=== PATIENT | female | born 1985 | race Hispanic/Latino ===

== ENCOUNTER 2018-02-14 06:18 | Emergency (ER) | payer BC, OTHER ==
[~2018-02-14] VITALS: Ht 157.5 cm; Wt 54.0 kg
[~2018-02-14 06:18] MED LIST: FERROUS SULF325 M1 PO; FLUZONE SPLT1 M1 IM; IBUPROFEN600 MG PO; NO; OB COMPLET2 OR; OBTREX DHA PO; TUBERSOL5 MG/0.1 M ID
[2018-02-14] MEDS ORDERED: VISTARIL25 MG PO (07:41)
[2018-02-14 07:44] VITALS: BP 103/55
== END 2018-02-14 07:45 | disposition home or self-care (01) | DRG 833 ==
LOC: ED 06:18
DX: O26.892 Other specified pregnancy related conditions, second trimester (principal); L30.9 Dermatitis, unspecified; L29.9 Pruritus, unspecified; Z3A.16 16 weeks gestation of pregnancy

== ENCOUNTER → 2018-04-28 | Outpatient (REF) | payer OTHER ==
[~2018-04-28] MED LIST changes: +VISTARIL25 MG PO
== END | disposition home or self-care (01) ==
LOC: LAB 07:47
PROVIDERS: ATTEND Obstetrics & Gynecology
DX: R73.09 Other abnormal glucose (principal)

== ENCOUNTER → 2018-05-27 | Outpatient (REF) | payer OTHER ==
[2018-05-27 11:34] LABS: BILIRUBIN, TOTAL 0.3 mg/dL (0.0-1.4); TOTAL PROTEIN 6.5 g/dL (6.3-8.2)
== END | disposition home or self-care (01) ==
LOC: LAB 10:31
PROVIDERS: ATTEND Obstetrics & Gynecology Maternal & Fetal Medicine
DX: O26.613 Liver and biliary tract disorders in pregnancy, third trimester (principal); K83.1 Obstruction of bile duct

== ENCOUNTER 2022-09-18 18:01 | Emergency (ER) | payer BC ==
[~2022-09-18] VITALS: Ht 162.6 cm; Wt 48.0 kg
[2022-09-18 18:09] VITALS: BP 115/74
[2022-09-18 18:30] VITALS: BP 122/85
[2022-09-18 18:37] LABS: EOS% 2.3 % (0-8); HEMATOCRIT 38.7 % (37.0-47.0); HEMOGLOBIN 12.2 g/dl (12.0-16.0); IMMATURE GRANULOCYTES 0.7 % (0.0-5.0); LYMPH% 7.2 % (15-41); MEAN CELL VOLUME 88.4 fL CALC (80.0-100.0); MEAN CORPUSCULAR HGB 27.9 pG CALC (26.0-32.0); MEAN CORPUSCULAR HGB CONC 31.5 g/dL CAL (32.0-36.0); MONO% 6.4 % (2-13); NEUT# 6.87 thou/uL (2.00-7.15); NEUT% 82.4 % (42-76); RED BLOOD COUNT 4.38 mill/uL (4.20-5.60); RED CELL DISTRI WIDTH 16.9 % (11.5-15.5)
[2022-09-18 18:44] LABS: ANION GAP 18 (6-22 (CALC)); BUN 18 mg/dL (7-17); BUN/CREATININE RATIO 20 (12-20 (CALC)); CARBON DIOXIDE 25 mmol/l (22-30); CHLORIDE 101 mmol/l (95-108); CREATININE 0.9 mg/dL (0.5-1.0); GFR FOR AFR.AMER. > 60 ML/MIN (>=60 (CALC)); GFR OTHER RACES > 60 ML/MIN (>=60 (CALC)); LIPASE 65 u/l (23-300); POTASSIUM 3.4 mmol/l (3.5-5.1); SODIUM 141 mmol/l (137-146)
[2022-09-18 18:57] LABS: ALBUMIN 4.2 g/dL (3.2-5.0); ALKALINE PHOSPHATASE 1183 u/l (38-126); BILIRUBIN, TOTAL 7.2 mg/dL (0.02-1.3); SGOT/AST 122 u/l (14-36); TOTAL PROTEIN 9.7 g/dL (6.3-8.2)
[2022-09-18 19:00] VITALS: BP 108/67
[2022-09-18 22:21] LABS: ETHYL ALCOHOL 0 mg/dl (0-30)
[2022-09-19 00:21] VITALS: BP 110/66
== END 2022-09-19 00:31 | disposition left against medical advice (07) | DRG 313 ==
LOC: ED 18:01
PROVIDERS: Emergency Medicine; Nurse Practitioner
DX: R07.9 Chest pain, unspecified (principal); R17 Unspecified jaundice; L50.9 Urticaria, unspecified; Z53.29 Procedure and treatment not carried out because of patient's decision for other reasons
CPT/HCPCS: Q9967

== ENCOUNTER 2023-12-13 00:03 | Emergency (ER) | payer OTHER ==
[2023-12-13] VITALS (10 sets, daily range): BP systolic 53–112; BP diastolic 39–86
[~2023-12-13] VITALS: Ht 162.6 cm; Wt 50.0 kg
[2023-12-13] MEDS ORDERED: TRAZODONE100 MG PO (00:09)
[2023-12-13] MEDS ORDERED: URSODIOL250 MG PO (00:10)
[2023-12-13] MEDS ORDERED: HYDROXYZ HCL25 MG PO (00:10)
[2023-12-13] MEDS ORDERED: SODIUM CHLORIDE 0.9% 1,000 ML IV ONE (01:05)
[2023-12-13 01:19] LABS: BASO% 0.5 % (0-3); EOS% 1.7 % (0-8); IMMATURE GRANULOCYTES 1.4 % (0.0-5.0); LYMPH% 9.7 % (15-41); MEAN CELL VOLUME 86.5 fL CALC (80.0-100.0); MEAN CORPUSCULAR HGB 28.1 pG CALC (26.0-32.0); MEAN CORPUSCULAR HGB CONC 32.5 g/dL CAL (32.0-36.0); MONO% 8.8 % (2-13); NEUT# 5.05 thou/uL (2.00-7.15); NEUT% 77.9 % (42-76); RED BLOOD COUNT 3.49 mill/uL (4.20-5.60); RED CELL DISTRI WIDTH 18.4 % (11.5-15.5)
[2023-12-13 01:23] LABS: HEMATOCRIT 30.2 % (37.0-47.0); HEMOGLOBIN 9.8 g/dl (12.0-16.0)
[2023-12-13 01:27] LABS: ALBUMIN 3.6 g/dL (3.2-5.0); ALKALINE PHOSPHATASE 950 u/l (38-126); ANION GAP 12 (6-22 (CALC)); BILIRUBIN, TOTAL 5.7 mg/dL (0.02-1.3); CARBON DIOXIDE 23 mmol/l (22-30); CHLORIDE 107 mmol/l (95-108); POTASSIUM 3.4 mmol/l (3.5-5.1); SGOT/AST 91 u/l (14-36); SODIUM 139 mmol/l (137-146); TOTAL PROTEIN 7.9 g/dL (6.3-8.2)
[2023-12-13 01:31] LABS: BUN 16 mg/dL (7-17); BUN/CREATININE RATIO 18 (12-20 (CALC)); CREATININE 0.9 mg/dL (0.5-1.0); ESTIMATED GFR 83 ML/MIN (>=90 (CALC))
[2023-12-13 02:48] LABS: URINE BLOOD DIPSTICK Negative (NEGATIVE); URINE GLUCOSE - DIPSTICK Negative (NEGATIVE); URINE KETONE Negative (NEGATIVE); URINE LEUK ESTERASE Negative (NEGATIVE); URINE NITRITE - DIPSTICK Negative (Negative); URINE PH 6.5 (4.5-8.0); URINE PROTEIN - DIPSTICK Negative (NEG-TRACE); URINE UROBILINOGEN - DIPSTICK >=8.0 E.U./dL (0.2)
[2023-12-13 02:51] LABS: URINE COLOR Yellow
== END 2023-12-13 04:48 | disposition home or self-care (01) | DRG 443 ==
LOC: ED 00:03
PROVIDERS: Emergency Medicine
DX: B19.20 Unspecified viral hepatitis C without hepatic coma (principal); R79.89 Other specified abnormal findings of blood chemistry; Z20.822 Contact with and (suspected) exposure to COVID-19

== ENCOUNTER 2024-04-15 17:27 | Emergency (ER) | payer BC ==
[~2024-04-15] VITALS: Ht 162.6 cm; Wt 47.6 kg
[~2024-04-15 17:27] MED LIST changes: +HYDROXYZ HCL25 MG PO; +TRAZODONE100 MG PO; +URSODIOL250 MG PO
[2024-04-15 17:35] VITALS: BP 128/78
[2024-04-15 17:45] VITALS: BP 117/70
[2024-04-15] MEDS ORDERED: BACTRIM DS1 TAB PO (18:15)
[2024-04-15 18:19] VITALS: BP 117/70
== END 2024-04-15 18:23 | disposition home or self-care (01) | DRG 759 ==
LOC: ED 17:27
DX: N76.4 Abscess of vulva (principal); K76.9 Liver disease, unspecified